=== PATIENT | female | born 1950 | race African-American/Black ===

== ENCOUNTER 2018-09-08 15:11 | Inpatient (IN) | payer BC, MEDICARE, OTHER ==
[~2018-09-08] VITALS: Ht 154.9 cm; Wt 76.2 kg
[~2018-09-08 15:11] MED LIST: AMLO5TAB4 PO; ASPI-986 PO; COR6 PO; PROT40 PO; TRAM50TA94 PO
[2018-09-08] MEDS ORDERED: NITROGLYCERIN OINT 1GM/INCH UDPKT TD STA (16:03)
[2018-09-08] MEDS ORDERED: MORPHINE SULFATE 4 MG/ML CPJ (NOT FOR IM USE) IV STA (16:03)
[2018-09-08] MEDS ORDERED: ASPIRIN 81MG TABLET PO ONE ×3 (16:15)
[2018-09-08] MEDS ORDERED: ONDANSETRON HCL 4MG/2ML INJ IV ONE (17:00)
[2018-09-08 17:12] LABS: BASOPHILS % 0.7 % (0.0-2.0); EOSINOPHILS % 2.8 % (0.0-5.0); HEMATOCRIT. 39.7 % (36.0-48.0); HEMOGLOBIN. 13.4 g/dL (12.0-16.0); LYMPHOCYTES % 41.6 % (20.0-50.0); MEAN CORPUSCULAR HEMOGLOBIN 30.2 pg (28.0-32.0); MEAN CORPUSCULAR VOLUME 89.2 fL (81.0-99.0); MEAN PLATELET VOLUME 7.7 fl (7.4-10.4); MONOCYTES % 7.7 % (2.0-8.0); NEUTROPHILS % 47.2 % (40.0-76.0); PLATELET 358 x1000/uL (130-400); RED BLOOD CELL COUNT 4.45 mill/uL (4.2-5.4); RED CELL DISTRIBUTION WIDTH 13.3 % (11.6-14.6)
[2018-09-08 17:18] LABS: CHLORIDE 109 mEq/L (98-107)
[2018-09-08] MEDS ORDERED: IOHEXOL-350 100 ML BOTTLE ONE (19:13)
[2018-09-08 22:00] VITALS: BP 105/58
[2018-09-08] MEDS ORDERED: ASPI-1159 PO (22:21)
[2018-09-08] MEDS ORDERED: AMLO1TAB12 PO (22:23)
[2018-09-08] MEDS ORDERED: HYDR-4005 PO (22:26)
[2018-09-08 22:39] VITALS: BP 105/58
[2018-09-08] MEDS ORDERED: ACETAMINOPHEN 650MG/20.3ML UDC PO PRN (22:45)
[2018-09-08] MEDS ORDERED: MORPHINE SULFATE 4 MG/ML CPJ (NOT FOR IM USE) IV PRN (22:45)
[2018-09-08] MEDS ORDERED: DOCUSATE SODIUM 100MG CAPSULE PO PRN (23:15)
[2018-09-08] MEDS ORDERED: TRAMADOL 50MG TABLET PO PRN (23:15)
[2018-09-08] MEDS ORDERED: ACETAMINOPHEN 325MG TABLET PO PRN (23:15)
[2018-09-08] MEDS ORDERED: ONDANSETRON HCL 4MG/2ML INJ IV PRN (23:15)
[2018-09-08] MEDS ORDERED: POTASSIUM CHLORIDE 20MEQ TABLET SR PO NR (23:30)
[2018-09-08] MEDS: AMLODIPINE 10MG TABLET PO SCH (23:49)
[2018-09-09] VITALS: BP 101/53
[2018-09-09 04:00] VITALS: BP 118/66
[2018-09-09] MEDS ORDERED: SODIUM CHLORIDE 0.9% INJ 3ML FLUSH IVF SCH (06:00)
[2018-09-09 07:07] LABS: CHLORIDE 112 mEq/L (98-107)
[2018-09-09 07:16] LABS: PARTIAL THROMBOPLASTIN TIME 29.6 sec (23.4-31.0)
[2018-09-09 07:35] LABS: HDL CHOLESTEROL 40 mg/dL (40-59); LDL CHOLESTEROL 125 mg/dL (5-100)
[2018-09-09] MEDS ORDERED: PANTOPRAZOLE 40MG DR TABLET PO SCH (07:40)
[2018-09-09 08:00] VITALS: BP 116/70
[2018-09-09] MEDS: AMLODIPINE 10MG TABLET PO SCH (08:44)
[2018-09-09] MEDS ORDERED: LOSARTAN POTASSIUM 50 MG TABLET PO SCH (09:00)
[2018-09-09] MEDS ORDERED: ENOXAPARIN 30MG/0.3ML SYR SUBCUT SCH (09:00)
[2018-09-09] MEDS ORDERED: ENOXAPARIN 40MG/0.4ML SYR SUBCUT SCH (09:00)
[2018-09-09] MEDS ORDERED: ASPIRIN 81MG TABLET PO SCH ×2 (09:00)
[2018-09-09] MEDS ORDERED: REGADENOSON 0.4 MG/5 ML IV ONE (12:15)
[2018-09-09] MEDS ORDERED: NITROGLYCERIN OINT 1GM/INCH UDPKT TD SCH (12:30)
[2018-09-09] MEDS ORDERED: ATOR20TA MT (14:25)
[2018-09-09 14:26] VITALS: BP 116/70
[2018-09-09] MEDS ORDERED: ATORVASTATIN CALCIUM 20MG TABLET PO SCH (21:00)
== END 2018-09-09 15:16 | disposition home or self-care (01) | DRG 392 ==
LOC: ER 17:51 → EDBEDREQ 18:46 → 7WST 19:01 → EDBEDREQ 19:02 → ENRESERV 19:42
PROVIDERS: ADMIT Internal Medicine; ATTEND Internal Medicine
DX: K21.9 Gastro-esophageal reflux disease without esophagitis (principal); I10 Essential (primary) hypertension; E78.5 Hyperlipidemia, unspecified; I34.0 Nonrheumatic mitral (valve) insufficiency; I44.7 Left bundle-branch block, unspecified; Z85.3 Personal history of malignant neoplasm of breast; Z90.11 Acquired absence of right breast and nipple; Z79.1 Long term (current) use of non-steroidal anti-inflammatories (NSAID); Z79.82 Long term (current) use of aspirin; Z79.899 Other long term (current) drug therapy
CPT/HCPCS: 36415; 71045; 71275; 80061; 84443; 84484; 93005; 93306; 96374; 96375; 99285; J1650; J2270; J2405; J2785; Q9967

== ENCOUNTER 2018-11-07 08:48 | Inpatient (IN) | payer MEDICARE ==
[~2018-11-07] VITALS: Ht 154.9 cm; Wt 71.0 kg
[~2018-11-07 08:48] MED LIST changes: -AMLO5TAB4 PO; -ASPI-986 PO; -COR6 PO; +HYDR-4005 PO; -PROT40 PO
[2018-11-07] MEDS ORDERED: MORPHINE SULFATE 4 MG/ML CPJ (NOT FOR IM USE) IV STA (09:00)
[2018-11-07] MEDS ORDERED: ONDANSETRON HCL 4MG/2ML INJ IV STA (09:00)
[2018-11-07 09:26] LABS: BASOPHILS % 0.6 % (0.0-2.0); EOSINOPHILS % 0.1 % (0.0-5.0); HEMATOCRIT. 41.1 % (36.0-48.0); HEMOGLOBIN. 13.7 g/dL (12.0-16.0); LYMPHOCYTES % 8.5 % (20.0-50.0); MEAN CORPUSCULAR HEMOGLOBIN 29.4 pg (28.0-32.0); MEAN CORPUSCULAR VOLUME 88.2 fL (81.0-99.0); MEAN PLATELET VOLUME 8.1 fl (7.4-10.4); MONOCYTES % 2.4 % (2.0-8.0); NEUTROPHILS % 88.4 % (40.0-76.0); PLATELET 341 x1000/uL (130-400); RED BLOOD CELL COUNT 4.67 mill/uL (4.2-5.4); RED CELL DISTRIBUTION WIDTH 12.7 % (11.6-14.6)
[2018-11-07 09:33] LABS: CHLORIDE 102 mEq/L (98-107)
[2018-11-07] MEDS ORDERED: MORPHINE SULFATE 10 MG/ML CPJ IV STA (09:35)
[2018-11-07] MEDS ORDERED: ATOR10TA PO (12:34)
[2018-11-07] MEDS ORDERED: AMLO5TAB4 PO (12:34)
[2018-11-07] MEDS ORDERED: LOSA25TA3 PO (12:34)
[2018-11-07] MEDS ORDERED: PANT40SU PO (12:34)
[2018-11-07] MEDS ORDERED: ASPI-1159 PO (12:34)
[2018-11-07 12:35] VITALS: BP 130/75
[2018-11-07 12:40] VITALS: BP 130/75
[2018-11-07] MEDS ORDERED: POTASSIUM CHLORIDE 20MEQ TABLET SR PO NR (14:54)
[2018-11-07 16:00] VITALS: BP 130/75
[2018-11-07] MEDS ORDERED: GUAIFENESIN 200MG/10ML SUGAR FREE UDC PO PRN (16:45)
[2018-11-07] MEDS ORDERED: DIPHENHYDRAMINE 50MG/ML VIAL IV PRN (16:45)
[2018-11-07] MEDS ORDERED: ACETAMINOPHEN 650MG SUPP PR PRN (16:45)
[2018-11-07] MEDS ORDERED: NA PHOS,M-B/NA PHOS,DI-BA ENEMA 118ML PR PRN (16:45)
[2018-11-07] MEDS ORDERED: DOCUSATE SODIUM 100MG CAPSULE PO PRN (16:45)
[2018-11-07] MEDS ORDERED: CLONIDINE 0.1MG TABLET PO PRN (16:45)
[2018-11-07] MEDS ORDERED: IPRATROPIUM/ALBUTEROL 0.5-3(2.5)MG/3ML NEB INH PRN (16:45)
[2018-11-07] MEDS ORDERED: LORAZEPAM 1MG TABLET PO PRN (16:45)
[2018-11-07] MEDS ORDERED: MAGNESIUM/ALUMINUM HYDROXIDE/SIMETHICONE 30ML UDC PO PRN (16:45)
[2018-11-07] MEDS ORDERED: ACETAMINOPHEN 325MG TABLET PO PRN (16:45)
[2018-11-07] MEDS ORDERED: HYDROMORPHONE HCL/PF 2MG/ML CPJ IV PRN (17:00)
[2018-11-07] MEDS: NITROGLYCERIN 0.4MG TABLET SL SL PRN ×2 (17:10→18:39)
[2018-11-07] MEDS: ISOSORBIDE MONONITRATE 60MG TABLET SR 24HR PO SCH (17:17)
[2018-11-07] MEDS: MORPHINE SULFATE 10 MG/ML CPJ IV PRN (17:35)
[2018-11-07] MEDS: SIMETHICONE 80MG TABLET CHEW PO PRN (18:00)
[2018-11-07 20:37] LABS: INR 1.1; PROTHROMBIN TIME 10.6 sec (9.1-11.1)
[2018-11-07] MEDS ORDERED: ENOXAPARIN 40MG/0.4ML SYR SUBCUT SCH (21:00)
[2018-11-07] MEDS: ATORVASTATIN CALCIUM 10MG TABLET PO SCH (21:00)
[2018-11-07 21:06] VITALS: BP 130/75
[2018-11-08] VITALS (14 sets, daily range): BP systolic 100–160; BP diastolic 53–106
[2018-11-08] MEDS ORDERED: DEXT 5%/0.45% NACL 1000ML 1,000 ML IV SCH
[2018-11-08] MEDS: SIMETHICONE 80MG TABLET CHEW PO PRN ×3 (00:04→21:25)
[2018-11-08 03:44] LABS: CHLORIDE 104 mEq/L (98-107)
[2018-11-08 03:52] LABS: LDL CHOLESTEROL 51 mg/dL (5-100)
[2018-11-08 03:54] LABS: HDL CHOLESTEROL 54 mg/dL (40-59); T4 FREE 0.99 ng/dL (0.76-1.46)
[2018-11-08 04:21] LABS: BASOPHILS % 0.3 % (0.0-2.0); EOSINOPHILS % 0.5 % (0.0-5.0); HEMATOCRIT. 40.9 % (36.0-48.0); HEMOGLOBIN. 13.7 g/dL (12.0-16.0); LYMPHOCYTES % 19.5 % (20.0-50.0); MEAN CORPUSCULAR HEMOGLOBIN 29.7 pg (28.0-32.0); MEAN CORPUSCULAR VOLUME 88.6 fL (81.0-99.0); MEAN PLATELET VOLUME 8.2 fl (7.4-10.4); MONOCYTES % 8.6 % (2.0-8.0); NEUTROPHILS % 71.1 % (40.0-76.0); PLATELET 325 x1000/uL (130-400); RED BLOOD CELL COUNT 4.62 mill/uL (4.2-5.4); RED CELL DISTRIBUTION WIDTH 12.8 % (11.6-14.6)
[2018-11-08] MEDS ORDERED: AMLODIPINE 5MG TABLET PO SCH (09:00)
[2018-11-08] MEDS: ISOSORBIDE MONONITRATE 60MG TABLET SR 24HR PO SCH (09:18)
[2018-11-08] MEDS: ASPIRIN 81MG EC TABLET PO SCH (09:18)
[2018-11-08] MEDS ORDERED: FENTANYL CITRATE/PF 50MCG/ML 2ML VIAL ONE (10:46)
[2018-11-08] MEDS ORDERED: LIDOCAINE HCL 1% 20ML VIAL (Pyxis) INJ ONE (10:46)
[2018-11-08] MEDS ORDERED: MIDAZOLAM HCL 2 MG/2 ML VIAL ONE ×2 (10:46→11:43)
[2018-11-08] MEDS ORDERED: IOHEXOL-300 100 ML BOTTLE ONE (10:46)
[2018-11-08] MEDS ORDERED: ACETAMINOPHEN 325MG TABLET PO PRN (12:00)
[2018-11-08] MEDS ORDERED: ATROPINE SULFATE 1MG/10ML SYR IV PRN (12:00)
[2018-11-08] MEDS: HYDROCODONE/ACETAMINOPHEN 5/325MG TABLET PO PRN (13:57)
[2018-11-08] MEDS ORDERED: HEPARIN SODIUM 1,000 UNIT/1ML VIAL IV ONE (14:37)
[2018-11-08] MEDS ORDERED: NITROGLYCERIN 50MCG/ML 10ML VIAL (CATH LAB) IV ONE (15:08)
[2018-11-08] MEDS ORDERED: NICARDIPINE 100MCG/ML 10ML VIAL (CATH LAB) IV ONE (15:08)
[2018-11-08] MEDS: MORPHINE SULFATE 10 MG/ML CPJ IV PRN ×2 (15:21→19:51)
[2018-11-08] MEDS ORDERED: IPRATROPIUM/ALBUTEROL 0.5-3(2.5)MG/3ML NEB HHN ONE (16:30)
[2018-11-08] MEDS ORDERED: SODIUM CHLORIDE 0.45% 1,000 ML IV SCH (16:30)
[2018-11-08] MEDS: ATORVASTATIN CALCIUM 10MG TABLET PO SCH (21:07)
[2018-11-08] MEDS: ONDANSETRON HCL 4MG/2ML INJ IV PRN (21:13)
[2018-11-08] MEDS: AMLODIPINE 5MG TABLET PO SCH (21:14)
[2018-11-09] VITALS (8 sets, daily range): BP systolic 98–132; BP diastolic 54–76
[2018-11-09] MEDS: HYDROCODONE/ACETAMINOPHEN 5/325MG TABLET PO PRN (00:26)
[2018-11-09] MEDS: MORPHINE SULFATE 10 MG/ML CPJ IV PRN (05:11)
[2018-11-09] MEDS: ONDANSETRON HCL 4MG/2ML INJ IV PRN (05:21)
[2018-11-09 06:46] LABS: BASOPHILS % 0.6 % (0.0-2.0); EOSINOPHILS % 0.5 % (0.0-5.0); HEMOGLOBIN. 12.4 g/dL (12.0-16.0); LYMPHOCYTES % 21.6 % (20.0-50.0); MEAN CORPUSCULAR HEMOGLOBIN 29.6 pg (28.0-32.0); MEAN CORPUSCULAR VOLUME 88.5 fL (81.0-99.0); MEAN PLATELET VOLUME 8.5 fl (7.4-10.4); MONOCYTES % 14.3 % (2.0-8.0); PLATELET 280 x1000/uL (130-400); RED BLOOD CELL COUNT 4.18 mill/uL (4.2-5.4); RED CELL DISTRIBUTION WIDTH 12.8 % (11.6-14.6)
[2018-11-09 07:11] LABS: CHLORIDE 105 mEq/L (98-107)
[2018-11-09] MEDS: ISOSORBIDE MONONITRATE 60MG TABLET SR 24HR PO SCH (08:07)
[2018-11-09] MEDS: AMLODIPINE 5MG TABLET PO SCH (08:07)
[2018-11-09] MEDS: ASPIRIN 81MG EC TABLET PO SCH (08:07)
[2018-11-09 08:23] LABS: CLARITY URINE CLEAR (CLEAR); COLOR URINE YELLOW (YELLOW); KETONES URINE NEGATIVE (NEGATIVE); LEUKOCYTE ESTERASE URINE 1+ (NEGATIVE); NITRITE URINE NEGATIVE (NEGATIVE); OCCULT BLOOD URINE NEGATIVE (NEGATIVE); PH URINE 5.5 (4.5-8.0); PROTEIN URINE NEGATIVE (NEGATIVE); SPECIFIC GRAVITY URINE 1.022 (1.005-1.030); UROBILINOGEN URINE 0.2 E.U./dL (0.2-1.0)
[2018-11-09 08:49] LABS: *AMPHETAMINES SCREEN URINE NEGATIVE (NEGATIVE); *BARBITURATES SCREEN URINE NEGATIVE (NEGATIVE); *BENZODIAZEPINES SCREEN URINE PRESUMTIVE POSITIVE (NEGATIVE); *COCAINE SCREEN URINE NEGATIVE (NEGATIVE); METHADONE URINE SCREEN NEGATIVE (NEGATIVE); OPIATES URINE SCREEN PRESUMTIVE POSITIVE (NEGATIVE); PHENCYCLIDINE URINE SCREEN NEGATIVE (NEGATIVE)
[2018-11-09 08:51] LABS: CANNABINOID URINE SCREEN NEGATIVE (NEGATIVE)
[2018-11-09] MEDS ORDERED: LIDOCAINE 5% PATCH TOP SCH (11:00)
[2018-11-09] MEDS ORDERED: CELECOXIB 100MG CAPSULE PO NR (11:45)
== END 2018-11-09 13:19 | disposition home or self-care (01) | DRG 280 ==
LOC: ER 08:48 → 7WST 10:24 → EDBEDREQ 10:27 → EDBEDREQTM 10:27 → ENRESERV 10:52 → 7WST 13:38 → 3WST 11-08 12:08
PROVIDERS: ADMIT Internal Medicine; ATTEND Internal Medicine
PROC: B2111ZZ Fluoroscopy of Multiple Coronary Arteries using Low Osmolar Contrast (ICD-10-PCS; principal; 2018-11-08)
PROC: 4A023N7 Measurement of Cardiac Sampling and Pressure, Left Heart, Percutaneous Approach (ICD-10-PCS; 2018-11-08)
DX: I21.4 Non-ST elevation (NSTEMI) myocardial infarction (principal); I50.33 Acute on chronic diastolic (congestive) heart failure; I25.110 Atherosclerotic heart disease of native coronary artery with unstable angina pectoris; E78.5 Hyperlipidemia, unspecified; E87.6 Hypokalemia; I11.0 Hypertensive heart disease with heart failure; K21.9 Gastro-esophageal reflux disease without esophagitis; I44.7 Left bundle-branch block, unspecified; M16.11 Unilateral primary osteoarthritis, right hip; R73.9 Hyperglycemia, unspecified; I25.2 Old myocardial infarction; Z79.82 Long term (current) use of aspirin; Z79.899 Other long term (current) drug therapy; Z82.49 Family history of ischemic heart disease and other diseases of the circulatory system
CPT/HCPCS: 36415; 71045; 72192; 78582; 80048; 80061; 80305; 83036; 83735; 83880; 84132; 84439; 84443; 84484; 93005; 93454; 93970; 94640; 96374; 96375; 97162; 99285; A9558; C1769; C1887; C1893; J1644; J2250; J2270; J2405; J3010; J3490; J7620; Q9967